=== PATIENT | female | born 1945 | race Caucasian/White ===

== ENCOUNTER → 2016-06-14 | Outpatient (CLI) | payer OTHER ==
[~2016-06-14] MED LIST: ADVAIR 500-501 EACH INH; ADVAIR 5001 DISK W/1 INH; ALPRAZOLAM PO; ALPRAZOLAM0.25 MG PO; ASPIRIN PO; ATENOLOL PO; BAYER CHEWABLE81 MG PO; BRIMONIDINE5 ML OD; DELTASONE20 MG; DOXYCYCLINE HY100 M3 PO; LEVAQUIN PO; LIPITOR PO; LISINOPRIL PO; NEXIUM PO; OXYGEN; OXYGEN INH; PAIN RELIEF650 MG PO; PREDNISONE10 MG PO; PRILOSEC PO; PROAIR HFA8.5 GM; PROAIR HFA8.5 GM INH; REGLAN PO; SINGULAIR PO; SOLU MEDRO IV; SPIRIVA RESPIMAT4 G1 INH; SPIRIVA18 MCG INH; STIOLTO RESPIMAT4 GM INH; SYNTHROID PO; SYNTHROID88 MCG PO; TENORMIN50 MG PO; TRAVATAN Z5 ML OU; TRAVATAN5 ML OP; VITAMIN D; VITAMIN D 4001 UDTAB PO; VITAMIN D250000 UNIT PO; WALGREENS PHARMACY; XALATAN OU; [UNRECOGNIZED DRUG - OTHER] OS
--- NOTE | ~2016-06-14 | CT57 ---
[facility] A Service of [facility] RADIOLOGY TEXT RESULTS PATIENT: DOUGLAS PEREZ LOCATION: [facility] : 45 UNIT #: [id number] AGE: [address]: Sunni Middleton SEX: F ORDER DR: [id number] [facility] [address] [facility]. [place], [place] [address] [id number] O MR#: [id number] Acc #: [id number] NAME: DOUGLAS PEREZ : 1945 SEX: F STUDY DATE/TIME: 06/14/2016 15:30 UNIT: [facility] ROOM: STUDY DESCRIPTION: CT Chest Wo Cont Attending Physician: Sunni Middleton A.P.R.N. Referring Physician: Sunni Middleton A.P.R.N. Ordering Physician: Sunni Middleton A.P.R.N. Primary Care Physician: Bob Escudero M.D. MEDICAL IMAGING REPORT This report is preliminary unless electronic signature is present EXAM CT chest without contrast INDICATIONS Shortness of air for the past [address] Followup. PROCEDURE Unenhanced CT of the chest. This CT exam was performed with one or more of the following radiation dose reduction techniques: automatic exposure control, adjustment of mA and/or kV according to patient size, and iterative reconstruction. COMPARISON 10/13/2015 FINDINGS Severe upper lobe predominant emphysema. Redemonstration complete atelectasis of the right middle lobe. No appreciable obstructing mass is seen. There is a lobulated nodule in the lateral right lower lobe that measures 9 mm and is new. Subpleural nodule right lower lobe is stable. 5 mm nodule in left lower lobe is unchanged. No adenopathy. No acute findings in the included upper abdomen. No aggressive appearing bone lesion. IMPRESSION 1. Severe emphysema. 2. Stable complete atelectasis right middle lobe without evidence for an obstructing mass. 3. There is a new 9 mm lobulated nodule in the lateral right lower lobe. It is slightly below limits for PET. Recommended attention on a short-interval followup chest CT. 4. Other nodules detailed above are unchanged. STS. [facility] A Service of [facility] RADIOLOGY TEXT RESULTS PATIENT: DOUGLAS PEREZ LOCATION: [facility] : 45 UNIT #: [id number] AGE: [address]: Sunni Middleton SEX: F ORDER DR: Dictated by... Wero Tay M.D. THIS IS AN ELECTRONICALLY VERIFIED REPORT Wero Tay M.D. at 06/16/2016 7:15 AM EED/to TD: 06/14/2016 21:48 JOB #: [id number] MEDICAL IMAGING REPORT Page 1 of 1 COPY
== END | disposition home or self-care (01) ==
LOC: CCAT 14:38
DX: R93.8 Abnormal findings on diagnostic imaging of other specified body structures (principal); J43.9 Emphysema, unspecified; J98.11 Atelectasis; R91.8 Other nonspecific abnormal finding of lung field
CPT/HCPCS: 71250

== ENCOUNTER 2016-07-31 20:03 | Inpatient (IN) | payer OTHER ==
--- NOTE | ~2016-07-31 | EKG ---
PATIENT: DOUGLAS PEREZ UNIT #: [id number] Ventricular Rate: 75 BPM Atrial Rate: 75 BPM P-R Interval: 136 ms QRS Duration: 78 ms Q-T Interval: 362 ms QTC Calculation(Bezet): 404 ms P [place]: 52 degrees Calculated R [place]: 73 degrees Calculated T [place]: 52 degrees Diagnosis Line: Normal sinus rhythm Diagnosis Line: Normal ECG Diagnosis Line: When compared with ECG of 24-DEC-2015 12:12, Diagnosis Line: No significant change was found Diagnosis Line: Confirmed by TONY CEBALLOS MD ([id number]) on 08/02/2016 Diagnosis Line: 9:49:52 AM INTERPRETING MD: TUCKER ABDI
--- NOTE | ~2016-07-31 | EKG ---
PATIENT: DOUGLAS PEREZ UNIT #: [id number] Ventricular Rate: 75 BPM Atrial Rate: 75 BPM P-R Interval: 136 ms QRS Duration: 78 ms Q-T Interval: 362 ms QTC Calculation(Bezet): 404 ms P Caldwell: 52 degrees Calculated R Caldwell: 73 degrees Calculated T Caldwell: 52 degrees Diagnosis Line: Normal sinus rhythm Diagnosis Line: Normal ECG Diagnosis Line: When compared with ECG of 24-DEC-2015 12:12, Diagnosis Line: No significant change was found Diagnosis Line: Confirmed by TONY CEBALLOS MD ([id number]) on 08/02/2016 Diagnosis Line: 9:49:52 AM Diagnosis Line: Also confirmed by TONY CEBALLOS MD ([id number]), slot editor Diagnosis Line: GWENDOLYN HALL ([id number]) on 08/02/2016 11:19:20 AM INTERPRETING MD: TUCKER ABDI
--- NOTE | ~2016-07-31 | CR72 ---
[facility] A Service of [facility] RADIOLOGY TEXT RESULTS PATIENT: DOUGLAS PEREZ LOCATION: [facility] - : 45 UNIT #: [id number] AGE: [address]: Bob Escudero MD SEX: F ORDER DR: [id number] [facility] [address] [facility]. [place], [place] [address] [id number] I MR#: [id number] Acc #: [id number] NAME: DOUGLAS PEREZ : 1945 SEX: F STUDY DATE/TIME: 07/31/2016 20:31 UNIT: [facility] ROOM: [facility] STUDY DESCRIPTION: CR Chest Single View Portable Attending Physician: Bob Escudero M.D. Ordering Physician: Nanda Heaton M.D. Primary Care Physician: Bob Escudero M.D. MEDICAL IMAGING REPORT This report is preliminary unless electronic signature is present EXAM Portable chest HISTORY Shortness of air for 3 days. FINDINGS Bilateral emphysema with scattered linear fibrotic scarring in both lungs, greater in the lung bases. No airspace infiltrates or effusions. Small calcified mediastinal and right hilar nodes. IMPRESSION Bilateral emphysema. No acute findings. Dictated by... Raciel Delaney M.D. THIS IS AN ELECTRONICALLY VERIFIED REPORT Raciel Delaney M.D. at 08/01/2016 5:15 PM DFPete/fredy TD: 08/01/2016 10:35 JOB #: [id number] MEDICAL IMAGING REPORT Page 1 of 1 COPY
--- NOTE | ~2016-07-31 | MAL ---
[facility] Nutrition Therapy DATE: 08/01/16 Patient: DOUGLAS PEREZ Physician: KENNEY Address: [address] Room/Bed: [address] [place] [address], Zip: [place] [address] Admit Date: 08/01/16 Date of : [birth year] Height: 4 11 Weight: 95 43.5 PHYSICAL MALNUTRITION ASSESSMENT Energy Intake, Chronic Illness Severely reduced: </=50% needs for >/=1 month Energy Intake, Social/Environmental Severely reduced: </=50% needs for </=1 month Energy Intake Comment: PT REPORTS DECREASED PO INTAKE 2' DECREASED APPETITE PAST SEVERAL MONTHS. PT ADDS HER APPETITE "GOES UP AND DOWN". PT NOTES PO INTAKE AND APPETITE DECREASED SINCE 'S 11 YEARS AGO. PT PREFERS SOFT FOODS. Weight Loss, Chronic Illness Weight Loss, Social/Environmental Weight Loss, Comment: PT NOTES LOSING WEIGHT SINCE HER 'S 11 YEARS AGO-NOTES UBW IS ~120#. IN MARCH [id number]# Physical Findings Body Fat and Muscle Mass Moderate: (suggested) some loss of subqutaneous fat and/or muscle mass Severe: (obvious) significant muscle wasting and/or loss of subcutaneous fat Physical Findings Functional Capacity Moderate: (suggested) reduced functional capacity Severe: (obvious) bedridden or otherwise significantly reduced functional capacity Physical Findings Comment: PER RD OBSERVATION, SLIGHT DEPRESSION/HOLLOW DEPRESSION OF TEMPORAL MUSCLES NOTED, SOME PROTRUSION OF ACROMION PROCESS AND CLAVICLE, MINIMAL TO NO MUSCLE DEFINITION BICEPS AND TRICEPS; LOSS OF MUSCLE DEFINITION IN BILATERAL CALVES ALSO DARK CIRCLES & SLIGHTLY HOLLOW APPEARANCE OF EYES, DRY MOUTH AND NAILS NOTED. PT NOTES POOR EYESIGHT AND SLIGHT LOSS OF MEMORY AT THIS TIME Malnutrition Etiology Summary: Chronic illness moderate Chronic illness severe Social/Environmental moderate Social/Environmental severe [facility] Nutrition Therapy DATE: 08/01/16 Patient: DOUGLAS PEREZ Physician: KENNEY Address: [address] Room/Bed: [address] [place] [address], Zip: [place] [address] Admit Date: 08/01/16 Date of : [birth year] Height: 4 11 Weight: 95 43.5 Malnutrition Survey Comment: MODERATELY/SEVERE. SEE RD ASSESSMENT 08/01/16 Respectfully, FIDELIA LOPEZ MS, RD, LD Food and Nutritional Services [facility] cc: client file
--- NOTE | ~2016-07-31 | HP ---
Unit #: [id number] #: [id number] Patient: DOUGLAS PEREZ [id number] [address] [place], [place] [address] [id number] I MR#: [id number] NAME: DOUGLAS PEREZ ROOM: 223 Age: 71 Sex: F Admission Date: 08/01/2016 : 1945 Attending Physician: Bob Escudero M.D. Primary Care Physician: Bob Escudero M.D. HISTORY AND PHYSICAL HISTORY OF PRESENT ILLNESS 71-year-old white female with a history of hypertension, glaucoma, hyperlipidemia, TIA, COPD, SIADH, osteoporosis, hypothyroidism, chronic right middle lobe collapse, recently taken off her Advair because of glaucoma, placed on Stiolto. Over the past week or so she has become increasingly more anorexic, dyspnea on exertion, nonproductive cough. No fever, no chest pain, no change in bowel or bladder habits. No edema. No PND or orthopnea. Eventually arrived in the emergency room instead of the office. Here, she is afebrile. O2 sat on 3L is 88%. Labs were unremarkable except for pH of 7.337, a pCO2 of 58 and a pAO2 of 115 on 2L. Chest x-ray - no report, and the patient is admitted for exacerbation of COPD. ALLERGIES She has stated allergies to penicillin and morphine. MEDICATIONS Her medications prior to admission: 1. Vitamin D 50,000 units weekly. 2. Brimonidine eyedrops t.i.d. 3. Synthroid 88 mcg daily. 4. Stiolto, two puffs daily. 5. Travatan Z, one drop both eyes q. h.s. 6. Phospholine, two drops left eye q. h.s. 7. ProAir HFA, two puffs four times daily. She also, by previous admission, was on: 8. Lipitor 10 mg daily. 9. Enteric coated aspirin 81 mg daily. 10. Prilosec 20 mg daily. 11. Atenolol 100 mg daily. 12. Xanax 0.25 mg p.o. b.i.d. p.r.n. which are not on the current list and the patient states she is still on these in any case. PAST MEDICAL HISTORY 1. She has a history of a left hemispheric TIA. 2. Chronic hyponatremia secondary to SIADH. 3. Hypertension. 4. Hyperlipidemia. 5. COPD. 6. Mild dementia. 7. Mild mitral regurgitation. 8. Chronic malnutrition. 9. Hypothyroidism. 10. History of Graves. Unit #: [id number] #: [id number] Patient: DOUGLAS PEREZ 11. Right middle lobe collapse. 12. Chronic osteoporosis. 13. Generalized anxiety disorder. 14. History of colonic polyps. 15. Status post bilateral cataract surgery. 16. Tonsillectomy. SOCIAL HISTORY Prior smoker. No alcohol or street drug use. . Lives with her adult daughter. FAMILY HISTORY Noncontributory. PHYSICAL EXAMINATION GENERAL: She is awake, alert, oriented x3, in no acute distress. Daughter is at the bedside during the history and physical examination. VITAL SIGNS: Afebrile. Pulse 68, respirations 20, blood pressure 115/66. O2 sat currently on 3L is 98%. Earlier it was 88%. HEENT: Unremarkable. NECK: Supple without JVD, bruits, adenopathy or thyromegaly. CHEST: Diffusely decreased breath sounds but clear to auscultation. HEART: Regular rate and rhythm without any murmurs, rubs or gallops. ABDOMEN: Soft, nondistended, nontender with positive bowel sounds and no hepatosplenomegaly. EXTREMITIES: No clubbing, cyanosis or edema. /RECTAL: Deferred. NEUROLOGICAL: Grossly intact. DIAGNOSTIC STUDIES LABORATORY: Cardiac enzymes normal. BMP normal. CBC normal. ABG as mentioned above. CMP normal. PT, INR and D-dimer normal. CARDIOVASCULAR: EKG - normal sinus rhythm, otherwise normal. IMAGING: Chest x-ray - no report. IMPRESSION 1. Exacerbation of chronic obstructive pulmonary disease. 2. Acute on chronic respiratory failure. 3. History of transient ischemic attack. 4. History of syndrome of inappropriate antidiuretic hormone. 5. Hypertension. 6. Hyperlipidemia. 7. Mild mitral regurgitation. 8. Hypothyroidism. 9. Chronic right middle lobe collapse. 10. History of Graves. 11. Osteoporosis. 12. Generalized anxiety disorder. 13. History of colonic polyps. 14. Status post bilateral cataract surgery. 15. Status post tonsillectomy. 16. Glaucoma. Unit #: [id number] #: [id number] Patient: DOUGLAS PEREZ PLAN IV steroids, IV antibiotics. Resume home meds. Lovenox for DVT prophylaxis. Supplemental oxygen. Keep her O2 sats above 90%. Dictated by Zohreh Gusman/jerri TD: 08/01/2016 08:32 JOB #: [id number] HISTORY AND PHYSICAL Page 1 of 1 X Bob Escudero MD X HISTORY AND PHYSICAL
--- NOTE | ~2016-07-31 | EKG ---
PATIENT: DOUGLAS PEREZ UNIT #: [id number] Ventricular Rate: 75 BPM Atrial Rate: 75 BPM P-R Interval: 136 ms QRS Duration: 78 ms Q-T Interval: 362 ms QTC Calculation(Bezet): 404 ms P Keyser: 52 degrees Calculated R Keyser: 73 degrees Calculated T Keyser: 52 degrees Diagnosis Line: Normal sinus rhythm Diagnosis Line: Normal ECG Diagnosis Line: When compared with ECG of 24-DEC-2015 12:12, Diagnosis Line: No significant change was found Diagnosis Line: Confirmed by TONY CEBALLOS MD ([id number]) on 08/02/2016 Diagnosis Line: 9:49:52 AM Diagnosis Line: Also confirmed by TONY CEBALLOS MD ([id number]), editor in chief Diagnosis Line: GWENDOLYN HALL ([id number]) on 08/02/2016 11:19:20 AM Diagnosis Line: Also confirmed by TONY CEBALLOS MD ([id number]), editor in chief Diagnosis Line: GWENDOLYN HALL ([id number]) on 08/02/2016 11:19:38 AM INTERPRETING MD: TUCKER ABDI
--- NOTE | ~2016-07-31 | A ---
[facility] Nutrition Therapy DATE: 08/01/16 Patient: DOUGLAS TANNER ANA Physician: KENNEY Address: [address] Room/Bed: [address] [place] [address], Zip: [place] [address] Admit Date: 08/01/16 Date of : [birth year] Height: 4 11 Weight: 95 43.5 NUTRITIONAL ASSESSMENT: REASON: PT SEEN FOR LOW BMI + 4 NUTRITION RISK PT RE: WEIGHT LOSS ALSO CONSULT RE: POOR APPETITE + WEIGHT LOSS PT IS 71 Y.O. FEMALE ADMITTED FOR COPD EXAC PMH: DM, HTN, HLD, HYPOTHYROIDISM, GERD, COPD, TIA, MILD DEMENTIA, HIATAL HERNIA, ANXIETY, GRAVES DISEASE, SIADH Anthropometrics: 5'0" (PER PT), WT: 90# (PER PT) (41 KG), BMI: 17.6, 90%IBW -HEIGHTS HAVE RANGED 4'11'-5'4" Labs: CREAT: 0.4 Meds: LIPITOR, PROTONIX, SYNTHROID, SOLU-MEDROL, NACL, VITAMIN D I/O & Bowel function: NOT AVAILABLE AT THIS TIME Skin Integrity: DRY SKIN NOTED ALL OVER BODY Estimated Nutrition Needs: INCREASED NUTRIENT NEEDS 2' PT UNDERWEIGHT, POOR/FAIR PO INTAKE AND APPETITE NOTED, WEIGHT LOSS NOTED Assessment: CHART REVIEWED AND EVENTS NOTED. PT SEEN FOR LOW BMI + WEIGHT LOSS + POOR PO INTAKE. PT REPORTS DECREASED PO INTAKE 2' DECREASED APPETITE PAST SEVERAL MONTHS. PT ADDS HER APPETITE "GOES UP AND DOWN" DEPENDING ON HOW SHE FEELS. PT REPORTS SHE LOST HER OVER 11 YEARS AGO, HAS LOST WEIGHT SINCE AND PREFERS SPECIFIC TEXTURIZED FOODS (SOFT FOODS) SUCH ENSURE SHAKES (3-4 DAILY), APPLESAUCE, ICE CREAM, MASHED POTATOES, MAC'N'CHEESE, JELLO AND PUDDING AND IS A VEGAN. PT REPORTS HAVING DIFFICULTY SWALLOWING AT TIMES. PT NOTES UBW BEFORE HER 'S WAS ~120# AND HAS LOST WEIGHT SINCE (MARCH 2016-107-113#). THIS RD ENCOURAGED SMALL FREQUENT HIGH KCAL AND HIGH PROTEIN MEALS AND SNACKS + SUPPLEMENT INTAKE, PT AGREED TO ENSURE SHAKES QID. PT REPORTS SHE IS AWARE OF HER LOW BODY WEIGHT AND HAS BEEN "WORKING ON GAINING WEIGHT". RD ALSO PROVIDED WRITTEN AND VERBAL HIGH KCAL/HIGH PROTEIN SOFT FOODS DIET EDUCATION. PT DEMONSTRATED UNDERSTANDING OF THE TOPIC. PT REPORTED NO DIET QUESTIONS. Dx: MALNUTRITION R/T DECREASED APPETITE, PMH, EMOTIONAL ISSUES AEB LOW BMI NOTED (17.6), WEIGHT LOSS NOTED, PT REPORT OF APPETITE ABOVE. Intervention: 1. REGULAR DIET 2. ENSURE SHAKES QID 3. 6 SMALL MEALS 4. DIET EDUCATION 5. [facility] Nutrition Therapy DATE: 08/01/16 Patient: DOUGLAS PEREZ Physician: KENNEY Address: [facility] [address] Room/Bed: [address] [place] [address], Zip: [place] [address] Admit Date: 08/01/16 Date of : [birth year] Height: 4 11 Weight: 95 43.5 RECOMMEND APPETITE STIMULANT Monitoring, Evaluation and Goals: 1. ORAL INTAKE; CONSUME >50% OF MEALS AND SUPPLEMENTS W/NO C/O N/V/D, NOTING NO DYSPHAGIA 2. WEIGHTS; PROMOTE GRADUAL WEIGHT GAIN TOWARDS HEALTHY; PREVENT FURTHER WEIGHT LOSS 3. LABS; WNL MONITOR: -PO INTAKE/APPETITE -WEIGHTS -SUPPLEMENT INTAKE Recommendations: 1. CONSIDER ENTOMOLOGY PROFESSOR EVAL IF DYSPHAGIA SUSPECTED (PER PT REPORT ABOVE) 2. PLEASE ORDER DANTE ENSURE SHAKES QID 3. PLEASE ADD 6 SMALL MEALS TO CURRENT DIET ORDER TO BETTER FACILITATE PO INTAKE 4. CONSIDER ADDING APPETITE STIMULANT, SUCH MAGACE, IF PO INTAKE <50% 5. APPRECIATE FAMILY AND STAFF TO ENCOURAGE ADEQUATE PO INTAKE RD WILL F/U PER PROTOCOL PT IS MOD/SEVERELY COMPROMISED Respectfully, FIDELIA LOPEZ MS, RD, LD Food and Nutritional Services [facility] cc: client file
--- NOTE | ~2016-07-31 | DS ---
Unit #: [id number] #: [id number] Patient: DOUGLAS PEREZ [id number] [address] [place], [place] [address] [id number] I MR#: [id number] NAME: DOUGLAS PEREZ ROOM: 223 Age: 71 Sex: F Admission Date: 08/01/2016 : 1945 Discharge Date: 08/03/2016 Attending Physician: Bob Escudero M.D. Primary Care Physician: Bob Escudero M.D. DISCHARGE SUMMARY PRINCIPAL DISCHARGE DIAGNOSES 1. Acute on chronic respiratory failure with hypercarbia and hypoxemia. 2. Chronic obstructive pulmonary disease. 3. Syndrome of inappropriate antidiuretic hormone. 4. History of transient ischemic attack. 5. Hyperlipidemia. 6. Hypertension. 7. Glaucoma. 8. Osteoporosis. 9. Hypothyroidism. 10. Chronic right middle lobe collapse. PROCEDURES None. CONSULTANTS None. REASON FOR HOSPITALIZATION The patient is a 71-year-old white female with history of hypertension, glaucoma, hyperlipidemia, TIA, COPD, SIADH, osteoporosis, hypothyroidism, right middle lobe collapse, recently taken off her Advair by her patient registration rep because of glaucoma, placed on Stiolto. Over the past week she has become more anorexic. Dyspnea on exertion, nonproductive cough. No fever. No chest pain. No edema, PND or orthopnea. Arrived in the emergency room where she was found to have a CO2 of 58, a pH of 7.337 and a PaO2 of 115 on O2 at 3 liters. Originally she was 88%. Chest x-ray showed no active disease. Cardiac enzymes were normal. CBC and BMP were normal. PT and D-dimer were normal. EKG was normal, and the patient was admitted. HOSPITAL COURSE She was given IV antibiotics, IV steroids, Mini-Neb. She went right down to her 2 liters, with which she has been well saturated. Her cough has essentially resolved. Her appetite is improved. PLAN She is being discharged home with a prescription for Levaquin for 8 more days for a full 10-day course; prednisone 40 mg for 2 days, 30 mg for 2 days, 20 mg for 2 days, then 10 mg for 2 days. She is to have an office visit in one week. She is on a healthy heart diet. Her other medications - ProAir 2 puffs 4 times daily as needed, Stiolto 2 puffs daily, Xanax 0.25 mg b.i.d. p.r.n., Tenormin 100 mg daily, Lipitor 10 mg daily, aspirin 81 mg daily, Prilosec 20 mg daily, Synthroid 88 mcg daily, phospholine 2 Unit #: [id number] #: [id number] Patient: ANAMILADDOUGLAS FLORES drops left eye q.h.s., Travatan Z 1 drop both eyes q.h.s., brimonidine drops t.i.d. She is on O2 at 2 liters nasal cannula continuously. Dictated by... Zohreh Gusman/elissa TD: 08/03/2016 10:40 JOB #: [id number] DISCHARGE SUMMARY Page 1 of 1 X Bob Escudero MD X DISCHARGE SUMMARY
[~2016-07-31 20:03] MED LIST changes: -ADVAIR 500-501 EACH INH; -ALPRAZOLAM0.25 MG PO; -BAYER CHEWABLE81 MG PO; -BRIMONIDINE5 ML OD; -DELTASONE20 MG; -DOXYCYCLINE HY100 M3 PO; -PAIN RELIEF650 MG PO; -PREDNISONE10 MG PO; -PROAIR HFA8.5 GM INH; -SINGULAIR PO; -SOLU MEDRO IV; -SPIRIVA18 MCG INH; -STIOLTO RESPIMAT4 GM INH; -SYNTHROID88 MCG PO; -TENORMIN50 MG PO; -TRAVATAN Z5 ML OU; -VITAMIN D; -VITAMIN D250000 UNIT PO; -XALATAN OU; -[UNRECOGNIZED DRUG - OTHER] OS
[2016-07-31 20:46] LABS: POC - CKMB 1.1 ng/mL (0.0-7.9); POC - TROPONIN <0.05 ng/mL (<=0.05)
[2016-07-31 20:47] LABS: BASOPHIL% 0.3 % (0-2.5); HEMATOCRIT 37.8 % (35.0-45.0); HEMOGLOBIN 12.2 gm/dL (12.0-16.0); LYMPHOCYTE# 1.1 X10e3 (1.0-3.5); LYMPHOCYTE% 18.5 % (17.0-45.0); MEAN CELL VOLUME 93.5 FL (83-96); MEAN CORPUSCULAR HEMOGLOBIN 30.3 PG (28-34); MEAN CORPUSCULAR HGB CONC 32.4 g/dL (30-36); MONOCYTE# 1.2 X10e3 (0-1.0); MONOCYTE% 19.2 % (3.0-12.0); NEUTROPHIL# 3.7 X10e3 (1.5-7.1); PLATELET COUNT 219 X10e3 (140-420); RED BLOOD COUNT 4.05 X10e (3.90-5.30); RED CELL DISTRIBUTION WIDTH 12.6 % (11.0-15.5)
[2016-07-31 20:48] LABS: DIFF IND NO
[2016-07-31 20:49] LABS: ARTERIAL BLD GAS O2 SATURATION 97.4 % (90.0-100.0); ARTERIAL BLOOD GAS CARBOXY HB 0.6 %sat (0.0-9.0); ARTERIAL BLOOD GAS HCO3 31.1 mmol/L; ARTERIAL BLOOD GAS MET HB 0.9 %sat (0.0-2.0); ARTERIAL BLOOD GAS pH 7.337 (7.350-7.450)
[2016-07-31 20:50] LABS: ARTERIAL BLOOD GAS PCO2 58.1 mmHg (35.0-45.0)
[2016-07-31 20:51] LABS: ARTERIAL BLOOD GAS ART SITE RIGHT BRACHIAL; ARTERIAL BLOOD GAS DELIVERY NASAL CANNULA; ARTERIAL DRAW? YES
[2016-07-31 21:02] LABS: INR 0.9; PROTHROMBIN TIME (PATIENT) 9.9 SECONDS (9.6-11.5)
[2016-07-31 21:19] LABS: ALBUMIN SERUM 4.4 g/dL (3.5-5.0); ALKALINE PHOSPHATASE 75 U/L (32-92); ALT (SGPT) 14 U/L (10-40); AST (SGOT) 24 U/L (10-42); BLOOD UREA NITROGEN 12 mg/dL (9-23); CALCIUM SERUM 9.3 mg/dL (8.4-10.2); CARBON DIOXIDE 31 mmol/L (22-31); CHLORIDE 97 mmol/L (100-111); CREATININE SERUM 0.4 mg/dL (0.6-1.4); GLOM FILT RATE Estimated 104.8 mL/min (>60); GLUCOSE FASTING 106 mg/dL (70-110); POTASSIUM 3.9 mmol/L (3.5-5.1); PROTEIN TOTAL SERUM 7.4 g/dL (6.0-8.3); SODIUM 137 mmol/L (135-145)
[2016-07-31 21:20] LABS: BILIRUBIN, DIRECT <0.1 mg/dL (0.0-0.2); BILIRUBIN,TOTAL <0.1 mg/dL (0.2-2.0)
[2016-07-31] MEDS ORDERED: BRIMONIDINE5 ML OD (22:24)
[2016-07-31] MEDS ORDERED: SYNTHROID88 MCG PO (22:24)
[2016-07-31] MEDS ORDERED: VITAMIN D250000 UNIT PO (22:24)
[2016-07-31] MEDS ORDERED: STIOLTO RESPIMAT4 GM INH (22:25)
[2016-07-31] MEDS ORDERED: TRAVATAN Z5 ML OU (22:25)
[2016-07-31] MEDS ORDERED: PROAIR HFA8.5 GM INH (22:27)
[2016-07-31] MEDS ORDERED: [UNRECOGNIZED DRUG - OTHER] OS (22:27)
[2016-08-01] MEDS ORDERED: PRILOSEC PO (08:16)
[2016-08-01] MEDS ORDERED: TENORMIN50 MG PO (11:58)
[2016-08-01] MEDS ORDERED: LIPITOR PO (11:59)
[2016-08-01] MEDS ORDERED: BAYER CHEWABLE81 MG PO (11:59)
[2016-08-01] MEDS ORDERED: ALPRAZOLAM0.25 MG PO (12:00)
[2016-08-03] MEDS ORDERED: VITAMIN D (08:44)
[2016-08-03] MEDS ORDERED: DELTASONE20 MG (08:45)
[2016-08-03] MEDS ORDERED: LEVAQUIN PO (08:46)
[2016-08-03] MEDS ORDERED: PAIN RELIEF650 MG PO (08:47)
[2016-08-03] MEDS ORDERED: OXYGEN (08:48)
== END 2016-08-03 10:50 | disposition home or self-care (01) | DRG 189 ==
LOC: CED 20:03 → C2A 23:50 → CEDOF 23:50 → CED 08-01 00:12 → CEDOF 08-01 00:12 → C2A 08-01 00:12 → CEDOF 08-01 08:07 → C2A 08-01 08:07
PROVIDERS: Emergency Medicine
DX: J96.21 Acute and chronic respiratory failure with hypoxia (principal); E22.2 Syndrome of inappropriate secretion of antidiuretic hormone; R63.0 Anorexia; F03.90 Unspecified dementia, unspecified severity, without behavioral disturbance, psychotic disturbance, mood disturbance, and anxiety; E05.00 Thyrotoxicosis with diffuse goiter without thyrotoxic crisis or storm; J44.1 Chronic obstructive pulmonary disease with (acute) exacerbation; J98.19 Other pulmonary collapse; Z68.1 Body mass index [BMI] 19.9 or less, adult; J96.22 Acute and chronic respiratory failure with hypercapnia; Z86.73 Personal history of transient ischemic attack (TIA), and cerebral infarction without residual deficits; E78.5 Hyperlipidemia, unspecified; I10 Essential (primary) hypertension; H40.9 Unspecified glaucoma; M81.0 Age-related osteoporosis without current pathological fracture; E03.9 Hypothyroidism, unspecified; Z88.0 Allergy status to penicillin; I34.0 Nonrheumatic mitral (valve) insufficiency; F41.1 Generalized anxiety disorder; Z86.010 Personal history of colon polyps; Z98.42 Cataract extraction status, left eye; Z98.41 Cataract extraction status, right eye; R63.6 Underweight
CPT/HCPCS: 36415; 36600; 71010; 80048; 80076; 82553; 82803; 83880; 84484; 85025; 85379; 85610; 93005; 94640; 94760; 99291; J1650; J1956; J2930

== ENCOUNTER 2016-08-16 19:37 | Inpatient (IN) | payer OTHER ==
--- NOTE | ~2016-08-16 | EKG ---
PATIENT: DOUGLAS PEREZ UNIT #: [id number] Ventricular Rate: 65 BPM Atrial Rate: 65 BPM P-R Interval: 128 ms QRS Duration: 72 ms Q-T Interval: 388 ms QTC Calculation(Bezet): 403 ms P [place]: 43 degrees Calculated R [place]: 86 degrees Calculated T [place]: 64 degrees Diagnosis Line: Normal sinus rhythm Diagnosis Line: Normal ECG Diagnosis Line: When compared with ECG of 16-AUG-2016 20:09, Diagnosis Line: (unconfirmed) Diagnosis Line: No significant change was found Diagnosis Line: Confirmed by TONY CEBALLOS MD ([id number]) on 08/17/2016 Diagnosis Line: 6:07:53 PM INTERPRETING MD: TUCKER ABDI
--- NOTE | ~2016-08-16 | CO ---
Unit #: [id number] #: [id number] Patient: DOUGLAS PEREZ [id number] [address] [place], [place] [address] [id number] I MR#: [id number] NAME: DOUGLAS PEREZ ROOM: 310 Age: 71 Sex: F Admission Date: 08/16/2016 : 1945 Attending Physician: Bob Escudero M.D. Primary Care Physician: Bob Escudero M.D. Consultation Date: 08/17/2016 CONSULTATION REPORT REASON FOR CONSULTATION COPD. HISTORY OF PRESENT ILLNESS The patient is a 71-year-old female with severe COPD and chronic respiratory failure, on oxygen at home, who also has glaucoma. 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 She actually required hospitalization in July of this year. It may or may not have been related to taking her off the inhaled steroid. There is some confusion on exactly what she was on. She was placed on Stiolto, but apparently, she did not get it because of insurance cost. So, it is unclear if she was off her Advair or not. Nonetheless, she was discharged, had worsening shortness of breath and re-presented to the emergency room. She has intermittent wheezing, some sputum production. No fever, hemoptysis, or chest pain. PAST MEDICAL HISTORY Remarkable for severe COPD with chronic hypercapnia; chronic respiratory failure, on oxygen; hypertension; hyperlipidemia; mild dementia; mild mitral regurgitation; hypothyroidism. She has had right middle lobe collapse in the past, status post bronchoscopy. MEDICATIONS At home, she is on Advair b.i.d., Spiriva once a day, as needed albuterol. Other medications include a variety of eye drops, Synthroid, Prilosec, Tenormin, Bertha Aspirin, Lipitor, occasional Tylenol. ALLERGIES Penicillin and morphine. SOCIAL HISTORY Reformed tobacco user. Lives with her daughter. FAMILY HISTORY No definite familial lung disease. REVIEW OF SYSTEMS No chest pain, palpitations, abdominal pain, melena, hematochezia, trouble swallowing. No hematuria, dysuria, focal weakness, paresthesias, leg pain, swelling, fever, chills, or weight loss. Further review of systems is negative. PHYSICAL EXAMINATION Unit #: [id number] #: [id number] Patient: DOUGLAS PEREZ GENERAL: Reveals a patient, who is afebrile. VITAL SIGNS: Pulse 80, respiratory rate 16, blood pressure 134/77. He is 4 feet and 11 inches and 83 pounds. HEENT: Pupils are equal, round, and reactive to light. Sclerae anicteric. Head atraumatic. NECK: Supple. No supraclavicular or cervical adenopathy appreciated. CHEST: Prolonged expiratory phase. Rare wheeze. No consolidation. CARDIAC: Reveals PMI in her epigastrium. Regular rate and rhythm. No definite murmur, rub, or gallop. ABDOMEN: Soft and nontender. No hepatomegaly or rebound. EXTREMITIES: Reveal no clubbing, cyanosis, or edema. No calf tenderness. SKIN: Warm and dry without rash or diaphoresis. NEUROLOGIC: Grossly intact. No focal motor or sensory deficits. DIAGNOSTIC STUDIES IMAGING STUDIES: Chest x-ray, COPD. No acute disease. LABORATORY RESULTS: Arterial blood gas on the 24; pH is 7.41, pCO2 of 62, pO2 of 69.9 on her 2 L. BUN is 13, creatinine is 0.6, sodium is 130. BNP is 34. INR normal. Cardiac enzymes normal. White blood cell count 13, hemoglobin 14.2, platelet count 346. Sputum from last year, bronchial washings, normal alex. EKG, unremarkable. IMPRESSION 1. Acute exacerbation of chronic obstructive pulmonary disease. 2. Chronic respiratory failure, hypercapnic and hypoxemic. 3. Glaucoma. 4. Hyperlipidemia, dementia, etc. PLAN Treatment of her COPD, we will try to reduce her IV steroids. Oxygen to maintain adequate saturations. I have discussed with the patient and her granddaughter at bedside the risk and benefit ratio of inhaled steroids and its relationship to glaucoma. Certainly, if she has repeated hospitalizations and we feel that inhaled steroids can reduce that, the benefit would much outweigh the risk. When she has an exacerbation, she is exposed to much higher doses of systemic steroids. At this point, my recommendation would be to continue inhaled steroids, long-acting beta agonist, long-acting muscarinic agents. Once she is stabilized, we could consider discontinuing her inhaled steroids. Thank you very much for allowing me to participate in the care of Ms. Perez. Dictated by... Zohreh Dozier/ángel TD: 08/18/2016 03:24 JOB #: [id number] [place] M.D. Unit #: [id number] #: [id number] Patient: DOUGLAS PEREZ CONSULTATION REPORT Page 1 of 1 X Mehdi Alberts MD CONSULTATION REPORT
--- NOTE | ~2016-08-16 | DS ---
Unit #: [id number] #: [id number] Patient: DOUGLAS PEREZ [id number] [address] [place], [place] [address] [id number] I MR#: [id number] NAME: DOUGLAS PEREZ ROOM: 310 Age: 71 Sex: F Admission Date: 08/16/2016 : 1945 Discharge Date: 08/19/2016 Attending Physician: Bob Escudero M.D. Primary Care Physician: Bob Escudero M.D. DISCHARGE SUMMARY PRINCIPAL DISCHARGE DIAGNOSES 1. Exacerbation of chronic obstructive pulmonary disease. 2. 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 3. Osteoporosis. 4. Hypothyroidism. 5. History of transient ischemic attack. 6. Hyperlipidemia. 7. Hypertension. 8. Glaucoma. 9. History of chronic right middle lobe collapse. PROCEDURES None. 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 REASON FOR HOSPITALIZATION Patient is a 71-year-old white female with end-stage COPD, on supplemental oxygen, history of right middle lobe syndrome, SIADH, hypertension, hyperlipidemia, osteoporosis, glaucoma, hypothyroidism, and recent admission for COPD, seen back in the office with another flare and treated again with a round of antibiotics and steroids with some improvement. Then, on the morning of admission she became acutely more short of breath and presented to the emergency room. Chest x-ray showed no active disease. White count was normal. Her O2 saturation was adequate on two liters which is her home dose. ABGs on two liters showed a pH of 7.415, CO2 of 61, and an O2 of 69. Lactic acid was normal. Coags were normal. CMP was normal except for a sodium of 130, CO2 of 38, and random blood sugar of 138. BNP was 34 and troponin negative x2. D-dimer normal. The patient was admitted. HOSPITAL COURSE The patient was admitted and started on IV steroids and oral antibiotics. She was seen in Pulmonary consultation by Dr. Alberts. She quickly improved. She has been on oral antibiotics and steroids for the past 24 hours and continues to improve. Her O2 saturation is currently 99% on two liters. She is being discharged home with an office visit with in one week and Dr. Alberts in six to eight weeks. CURRENT MEDICATIONS 1. Prednisone 40 mg daily for 5 days. 2. Doxycycline 100 mg b.i.d., #10. Unit #: [id number] #: [id number] Patient: DOUGLAS PEREZ 3. Albuterol unit dose mini-nebs 4 times daily p.r.n. 4. Singulair 10 mg p.o. daily. 5. Advair 500/50 at 1 puff q.12. 6. Tenormin 100 mg p.o. daily. 7. Aspirin 81 mg p.o. daily. 8. Prilosec 20 mg daily. 9. Synthroid 88 mcg daily. 10. Phospholine 2 drops O.S. at bedtime. 11. Travatan Z 1 drop O.U. at bedtime. 12. Brimonidine 5 mL O.D. t.i.d. 13. Oxygen at 2 liters. 14. Tylenol 650 q.i.d. p.r.n. 15. Stiolto has been discontinued. 16. Spiriva 1 puff daily. DIET Regular as tolerates. Dictated by... Zohreh Gusman TD: 08/20/2016 21:27 JOB #: [id number] DISCHARGE SUMMARY Page 1 of 1 X Bob Escudero MD X DISCHARGE SUMMARY
--- NOTE | ~2016-08-16 | HP ---
Unit #: [id number] #: [id number] Patient: DOUGLAS PEREZ [id number] [address] [place], [place] [address] [id number] I MR#: [id number] NAME: DOUGLAS PEREZ ROOM: 310 Age: 71 Sex: F Admission Date: 08/16/2016 : 1945 Attending Physician: Bob Escudero M.D. Primary Care Physician: Bob Escudero M.D. HISTORY AND PHYSICAL HISTORY OF PRESENT ILLNESS The patient is a 71-year-old white female with end-stage COPD on supplemental oxygen, history of right middle lobe syndrome, i.e., collapse, SIADH, hypertension, hyperlipidemia, generalized anxiety disorder, osteoporosis, glaucoma, hypothyroidism, recent admission for exacerbation of COPD and seen back in the office with another flare, treated with antibiotics and steroids with some improvement. She then became acutely more short of breath on the day of admission and presented herself to the emergency room. There, a chest x-ray showed no active disease. Her white count was normal. O2 saturation was good on 2 liters which is her home dose of oxygen. ABGs had an elevated CO2 but a normal pH. The patient was readmitted for further evaluation. She is already better this morning after only receiving one extra dose of Solu-Medrol IV at 125 mg. She has not been started on antibiotics and I am not really sure that they are going to improve her outcome at this point. In any case, she is readmitted. Dr. Alberts, her local hazmat driver, has been consulted and she is currently already improving with IV Solu-Medrol. PAST MEDICAL HISTORY 1. History of a left hemispheric TIA. 2. Chronic hyponatremia secondary to SIADH. 3. Hypertension. 4. Hyperlipidemia. 5. COPD. 6. Mild dementia. 7. Mild mitral regurgitation. 8. Chronic malnutrition. 9. Hypothyroidism. 10. History of Grave's. 11. Right middle lobe collapse. 12. Chronic osteoporosis. 13. Generalized anxiety disorder. 14. Colonic polyps. 15. Bilateral cataract surgery. 16. Glaucoma. 17. Tonsillectomy. HOME MEDICATIONS 1. Prednisone, dose unknown, daily. 2. ProAir two puffs q.i.d. 3. Stiolto two puffs daily. 4. Xanax 0.25 mg b.i.d. p.r.n. 5. Tenormin 100 mg daily. Unit #: [id number] #: [id number] Patient: DOUGLAS PEREZ 6. Lipitor 10 mg daily. 7. Aspirin 81 mg daily. 8. Prilosec 20 mg daily. 9. Synthroid 88 mcg daily. 10. Phospholine two drops left eye h.s. 11. Travatan Z one drop both eyes h.s. 12. Brimonidine drops t.i.d. 13. O2 at 2 liters per nasal cannula continuously. ALLERGIES 1. Penicillin. 2. Morphine. SOCIAL HISTORY Prior smoker. No alcohol or street drug use. She is a and lives with her adult daughter. FAMILY HISTORY Noncontributory. PHYSICAL EXAMINATION VITAL SIGNS: Afebrile overnight with a current temperature of 98.8, pulse 67, respirations 16, blood pressure 134/77, O2 saturation 97% on 2 liters. GENERAL: She is awake, alert, oriented x3. No acute distress. HEENT: Unremarkable. NECK: Supple without JVD, bruits, adenopathy, or thyromegaly. LUNGS: Clear to auscultation, diffusely decreased breath sounds. HEART: Regular rate and rhythm without murmurs, rubs, or gallops. ABDOMEN: Soft, nondistended, nontender with positive bowel sounds and no hepatosplenomegaly. EXTREMITIES: No clubbing, cyanosis, or edema. GENITOURINARY: Deferred. RECTAL: Deferred. NEUROLOGIC: Grossly within normal limits. DIAGNOSTIC STUDIES LABORATORY: CBC is normal except for a white count of 13.1 with a left shift. Again, the patient has recently been on steroids. ABGs on 2 liters show a pH of 7.415, pCO2 of 61.6 and a paO2 of 69.9. Lactic acid normal at 1.8. PT and PTT are within normal limits. CMP is normal except for a sodium of 130, CO2 of 38 and a random blood sugar of 138. BNP 34. Troponin negative x2. D-dimer normal at 327. IMAGING: Single-view chest x-ray shows severe bilateral emphysema but no active disease. IMPRESSION 1. Exacerbation of chronic obstructive pulmonary disease. 2. SIADH. 3. Osteoporosis. 4. Hypothyroidism. 5. History of transient ischemic attack. 6. Hyperlipidemia. 7. Hypertension. 8. Glaucoma. 9. Chronic right middle lobe collapse. PLAN Unit #: [id number] #: [id number] Patient: DOUGLAS PEREZ 1. Continue steroids. 2. Continue inhalers. 3. Lovenox for DVT prophylaxis. 4. Try Singulair to see if it helps for any asthmatic component that the patient may have as she typically has flare-ups this time of year. 5. Ask Dr. Alberts, from pulmonary services, to see. 6. Further evaluation pending the results of the above. Dictated by Zohreh Gusman/jamia TD: 08/17/2016 18:03 JOB #: [id number] HISTORY AND PHYSICAL Page 1 of 1 X Bob Escudero MD HISTORY AND PHYSICAL
--- NOTE | ~2016-08-16 | CR72 ---
[facility] A Service of [facility] & [facility] RADIOLOGY TEXT RESULTS PATIENT: DOUGLAS PEREZ LOCATION: [facility] [id number] : [birth year] UNIT #: [id number] AGE: [address]: Nasima Fischer MD SEX: F ORDER DR: [id number] [facility] [address] [facility]. [place], [place] [address] [id number] MR#: [id number] Acc #: [id number] NAME: DOUGLAS PEREZ : 1945 SEX: F STUDY DATE/TIME: 08/16/2016 20:19 UNIT: [facility] ROOM: STUDY DESCRIPTION: CR Chest Single View Portable Attending Physician: Christoph Fotoe D.O. Ordering Physician: Christoph Foote D.O. Primary Care Physician: Bob Escudero M.D. MEDICAL IMAGING REPORT This report is preliminary unless electronic signature is present EXAM Portable chest. HISTORY Shortness of air congestion for 1 week. FINDINGS Severe bilateral emphysema and hyperinflation of both lungs. Linear and fibrotic scarring in the lower lungs bilaterally. No airspace infiltrates or effusions. Cardiac and mediastinal contours are normal. No change compared to 07/31/16. IMPRESSION 1. Severe bilateral emphysema. 2. No active disease in the lungs. Dictated by... Raciel Delaney M.D. THIS IS AN ELECTRONICALLY VERIFIED REPORT Raciel Delaney M.D. at 08/16/2016 11:22 PM FERNANDO/ratna TD: 08/16/2016 22:35 JOB #: [id number] MEDICAL IMAGING REPORT Page 1 of 1 COPY
--- NOTE | ~2016-08-16 | EKG ---
PATIENT: DOUGLAS PEREZ UNIT #: [id number] Ventricular Rate: 80 BPM Atrial Rate: 80 BPM P-R Interval: 124 ms QRS Duration: 74 ms Q-T Interval: 346 ms QTC Calculation(Bezet): 399 ms P [place]: 55 degrees Calculated R [place]: 81 degrees Calculated T [place]: 51 degrees Diagnosis Line: Normal sinus rhythm Diagnosis Line: Normal ECG Baseline wander Diagnosis Line: Diagnosis Line: Confirmed by TONY CEBALLOS MD ([id number]) on 08/17/2016 Diagnosis Line: 6:03:58 PM INTERPRETING MD: TUCKER ABDI
[~2016-08-16 19:37] MED LIST changes: +ALPRAZOLAM0.25 MG PO; +BAYER CHEWABLE81 MG PO; +BRIMONIDINE5 ML OD; +DELTASONE20 MG; +PAIN RELIEF650 MG PO; +PROAIR HFA8.5 GM INH; +STIOLTO RESPIMAT4 GM INH; +SYNTHROID88 MCG PO; +TENORMIN50 MG PO; +TRAVATAN Z5 ML OU; +VITAMIN D; +VITAMIN D250000 UNIT PO; +[UNRECOGNIZED DRUG - OTHER] OS
[2016-08-16 20:16] LABS: BASOPHIL% 0.2 % (0-2.5); HEMATOCRIT 43.5 % (35.0-45.0); HEMOGLOBIN 14.2 gm/dL (12.0-16.0); LYMPHOCYTE% 7.7 % (17.0-45.0); MEAN CELL VOLUME 93.4 FL (83-96); MEAN CORPUSCULAR HEMOGLOBIN 30.4 PG (28-34); MEAN CORPUSCULAR HGB CONC 32.5 g/dL (30-36); MEAN PLATELET VOLUME 7.7 FL (6.5-11.5); MONOCYTE# 1.5 X10e3 (0-1.0); MONOCYTE% 11.5 % (3.0-12.0); NEUTROPHIL# 10.6 X10e3 (1.5-7.1); NEUTROPHIL% 80.6 % (40-75); PLATELET COUNT 346 X10e3 (140-420); RED BLOOD COUNT 4.66 X10e (3.90-5.30); WHITE BLOOD COUNT 13.1 X10e3 (4.0-10.5)
[2016-08-16 20:17] LABS: DIFF IND NO
[2016-08-16 20:17] LABS: ARTERIAL BLD GAS O2 SATURATION 92.2 % (90.0-100.0); ARTERIAL BLOOD GAS CARBOXY HB 0.7 %sat (0.0-9.0); ARTERIAL BLOOD GAS HCO3 39.4 mmol/L; ARTERIAL BLOOD GAS MET HB 0.5 %sat (0.0-2.0); ARTERIAL BLOOD GAS pH 7.415 (7.350-7.450)
[2016-08-16 20:18] LABS: ARTERIAL BLOOD GAS ART SITE LEFT BRACHIAL; ARTERIAL BLOOD GAS DELIVERY NASAL CANNULA; ARTERIAL BLOOD GAS PCO2 61.6 mmHg (35.0-45.0); ARTERIAL BLOOD GAS PO2 69.9 mmHg (80.0-100); ARTERIAL DRAW? YES
[2016-08-16 20:28] LABS: INR 0.9; PARTIAL THROMBOPLASTIN TIME 25.7 SECONDS (23.5-31.3); PROTHROMBIN TIME (PATIENT) 9.4 SECONDS (9.6-11.5)
[2016-08-16 20:40] LABS: ALBUMIN SERUM 4.3 g/dL (3.5-5.0); BILIRUBIN, DIRECT 0.1 mg/dL (0.0-0.2); BILIRUBIN,INDIRECT 0.6 mg/dL (0.0-0.9); BILIRUBIN,TOTAL 0.7 mg/dL (0.2-2.0); BUN/CREATININE RATIO 21.66; CALCIUM SERUM 9.7 mg/dL (8.4-10.2); CREATININE SERUM 0.6 mg/dL (0.6-1.4); GLOM FILT RATE Estimated 91.7 mL/min (>60); POTASSIUM 4.5 mmol/L (3.5-5.1); PROTEIN TOTAL SERUM 7.9 g/dL (6.0-8.3)
[2016-08-16] MEDS ORDERED: SOLU MEDRO IV (22:27)
[2016-08-17 00:08] LABS: POC - CKMB <1.0 ng/mL (0.0-7.9); POC - TROPONIN <0.05 ng/mL (<=0.05)
[2016-08-18 07:42] LABS: HEMATOCRIT 37.6 % (35.0-45.0); HEMOGLOBIN 12.4 gm/dL (12.0-16.0); MEAN CELL VOLUME 91.3 FL (83-96); MEAN CORPUSCULAR HEMOGLOBIN 30.2 PG (28-34); RED BLOOD COUNT 4.12 X10e (3.90-5.30); RED CELL DISTRIBUTION WIDTH 12.9 % (11.0-15.5); WHITE BLOOD COUNT 18.6 X10e3 (4.0-10.5)
[2016-08-18 08:00] LABS: CALCIUM SERUM 9.7 mg/dL (8.4-10.2); CREATININE SERUM 0.4 mg/dL (0.6-1.4); GLOM FILT RATE Estimated 104.8 mL/min (>60); POTASSIUM 4.7 mmol/L (3.5-5.1)
[2016-08-19] MEDS ORDERED: PREDNISONE10 MG PO (08:55)
[2016-08-19] MEDS ORDERED: ADVAIR 500-501 EACH INH (08:58)
[2016-08-19] MEDS ORDERED: XALATAN OU (08:58)
[2016-08-19] MEDS ORDERED: SINGULAIR PO (08:59)
[2016-08-19] MEDS ORDERED: DOXYCYCLINE HY100 M3 PO (09:00)
[2016-08-19] MEDS ORDERED: SPIRIVA18 MCG INH (09:03)
== END 2016-08-19 09:36 | disposition home or self-care (01) | DRG 191 ==
LOC: CED 19:37 → CEDOF 22:00 → C3A PCU 22:00 → CED 22:00 → C3A PCU 08-17 00:21 → CEDOF 08-17 00:21 → C3A PCU 08-17 00:21
PROVIDERS: Emergency Medicine; Internal Medicine
PROC: 05H333Z Insertion of Infusion Device into Right Innominate Vein, Percutaneous Approach (ICD-10-PCS; principal; 2016-08-17)
DX: J44.1 Chronic obstructive pulmonary disease with (acute) exacerbation (principal); E22.2 Syndrome of inappropriate secretion of antidiuretic hormone; E44.0 Moderate protein-calorie malnutrition; J96.10 Chronic respiratory failure, unspecified whether with hypoxia or hypercapnia; J96.11 Chronic respiratory failure with hypoxia; I27.2 Other secondary pulmonary hypertension; Z68.1 Body mass index [BMI] 19.9 or less, adult; M81.0 Age-related osteoporosis without current pathological fracture; E03.9 Hypothyroidism, unspecified; Z86.73 Personal history of transient ischemic attack (TIA), and cerebral infarction without residual deficits; E78.5 Hyperlipidemia, unspecified; I10 Essential (primary) hypertension; H40.9 Unspecified glaucoma; F03.90 Unspecified dementia, unspecified severity, without behavioral disturbance, psychotic disturbance, mood disturbance, and anxiety; F41.1 Generalized anxiety disorder; Z86.010 Personal history of colon polyps; Z98.42 Cataract extraction status, left eye; Z98.41 Cataract extraction status, right eye; Z79.82 Long term (current) use of aspirin; Z79.52 Long term (current) use of systemic steroids; Z99.81 Dependence on supplemental oxygen; Z88.0 Allergy status to penicillin; Z88.5 Allergy status to narcotic agent
CPT/HCPCS: 36415; 36600; 71010; 80048; 80076; 82553; 82803; 83605; 83880; 84484; 85025; 85027; 85379; 85610; 85730; 93005; 94640; 94664; 94760; 96374; 99285; J1650; J2920; J2930